=== PATIENT | female | born 1980 | race Caucasian/White ===

== ENCOUNTER 2018-06-06 17:25 | Emergency (ER) | payer OTHER ==
[~2018-06-06] VITALS: Ht 162.6 cm; Wt 95.0 kg
[~2018-06-06 17:25] MED LIST: HYDR-4383 PO
[2018-06-06 17:29] VITALS: BP 146/88
[2018-06-06] MEDS ORDERED: CLIN150C2 PO (17:44)
[2018-06-06] MEDS ORDERED: ketorolac trometh inj. 60 MG/2 ML VIAL IM ONE (17:45)
== END 2018-06-06 18:21 | disposition home or self-care (01) ==
LOC: ER 17:26
DX: K04.7 Periapical abscess without sinus (principal)
CPT/HCPCS: 96372; 99283; J1885